=== PATIENT | female | born 1990 | race Caucasian/White ===

== ENCOUNTER → 2024-04-10 08:23 | Outpatient (REF) | payer OTHER, SELFPAY | LOC: RCS 08:23 | PROVIDERS: ATTENDING PHYSICIAN Internal Medicine Cardiovascular Disease; FAMILY PHYSICIAN Family Medicine | DX: Q79.60 Ehlers-Danlos syndrome, unspecified (principal); R94.31 Abnormal electrocardiogram [ECG] [EKG]; R00.2 Palpitations; R07.89 Other chest pain | CPT/HCPCS: 93017; 93350 ==

== ENCOUNTER → 2024-04-16 10:24 | Outpatient (REF) | payer OTHER, SELFPAY | LOC: RCS 10:24 | PROVIDERS: ATTENDING PHYSICIAN Internal Medicine Cardiovascular Disease; FAMILY PHYSICIAN Family Medicine | DX: Q79.60 Ehlers-Danlos syndrome, unspecified (principal); R94.31 Abnormal electrocardiogram [ECG] [EKG]; R00.2 Palpitations; R07.89 Other chest pain | CPT/HCPCS: 93306 ==

== ENCOUNTER → 2025-03-05 15:57 | Outpatient (REF) | payer OTHER, SELFPAY | LOC: RAD 15:57 | PROVIDERS: ATTENDING PHYSICIAN Obstetrics & Gynecology; FAMILY PHYSICIAN Family Medicine | DX: R10.9 Unspecified abdominal pain (principal) | CPT/HCPCS: 36415; 76801; 76817; 84702 ==